=== PATIENT | male | born 1950 | race Caucasian/White ===

== ENCOUNTER 2018-10-12 10:30 | Emergency (ER) | payer MEDICARE, SELFPAY ==
[2018-10-12 10:33] VITALS: BP 137/79; PULSE 87; RESP 18; TEMP 36.3; O2SAT 99; BMI 25.3
--- NOTE | 2018-10-12 10:46 | CT_ITS ---
STUDY: CT ABDOMEN AND PELVIS WITH CONTRAST REASON FOR EXAM: Male, 67 years old. Lower abdominal pain x months and getting worse. RADIATION DOSAGE (If Supplied By Facility): CTDIvol = ( 24.87 ) mGy, DLP = ( 529.58 ) mGycm TECHNIQUE: Transaxial images were obtained from the dome of the diaphragm to the symphysis pubis with oral contrast. 100 ml of Isovue 300 contrast was administered. Sagittal and coronal images were reconstructed. Individualized dose optimization techniques were used for this CT. COMPARISON: None. FINDINGS: The visualized lung bases are unremarkable. The visualized portions of the heart are within normal limits. Normal liver. Normal gallbladder and extrahepatic biliary system. Normal spleen. Normal pancreas. Normal bilateral adrenal glands. Normal right kidney. Normal left kidney. Normal visualized stomach. Normal small intestine. Small diverticula along the sigmoid colon without diverticulitis. The appendix is visualized and appears normal. Normal abdominal aorta. Normal inferior vena cava. Normal retroperitoneum. Normal urinary bladder. Normal abdominal wall. Pronounced diffuse disc space height narrowing throughout the lumbar spine. Degenerative vacuum phenomenon at the L4-L5 and L5-S1 disc space levels. No acute osseous abnormality. CT/Abdomen/Pelvis WITH Contrast IMPRESSION: 1. Sigmoid diverticulosis without diverticulitis. 2. No suspicious mass or acute abnormality in the abdomen and pelvis. 3. Pronounced disc space height narrowing with degenerative vacuum phenomenon at L4-L5 and L5-S1 disc space levels. 4. Pronounced disc space height narrowing throughout the lumbar spine. Electronically Signed: Merrill Simpsno MD at 12:51 EST , Service support ,
--- NOTE | 2018-10-12 10:49 | ED.DCSUM_ITS ---
- ER Visit Summary Date of Service: 10/12/18 Chief Complaint: Abdominal pain History of Present Illness: The patient is a 67 M who has had abdominal pain for the past 2 months. Over the past week it is getting worse. He describes aching in the lower abdominal area. Nothing makes it better or worse. He has had no nausea, vomiting, diarrhea or constipation. Denies any urinary symptoms. He has had some dark stools. He followed up with his primary care physician for this last month and had a positive FOBT in the office. He is scheduled to see a GI doctor on October 21. His last colonoscopy was 5 years ago and was normal. He denies any history of abdominal surgeries. Physical Examination: Vital signs reviewed. HEENT exam unremarkable. Heart is regular rate and rhythm without murmurs. Lungs are clear to auscultation. Abdomen is soft and nontender. Extremities reveal no edema. Skin exam normal. Neurologic exam normal. Test Results: Laboratory studies, urinalysis normal. CAT scan with p.o. and IV contrast reveals diverticulosis. There are no masses noted. Emergency Department Course and Treatment: Patient looks very comfortable. I do not have any specific reason for the patient's pain. His blood counts are normal. I do not feel he requires a stay in the hospital. He does have follow- up in 9 days with a learning and development specialist. He will keep this appointment. I will give him Bentyl for pain. Treatment Plan: [] Disposition: Discharge Impression: Abdominal pain This note was generated with [employer] dictation software. It may contain incorrect words, spelling, and punctuation that were not noted in review of the chart prior to signing ED Disposition - Plan for ED Patient: Chief Complaint: Abd Pain Referrals: Ronnell Worthy MD [Primary Care Provider] -
[2018-10-12 11:03] LABS: Absolute Lymphocyte Count 1.54 X10^3/ul (0.83-4.51); Absolute Neutrophil Count 4.6 X10^3/uL (2.0-7.7); Basophil# 0.01 X10^3/uL; Basophil% 0.1 % (0-1); Eosinophil# 0.03 X10^3/uL; Eosinophils% 0.4 % (0-5); Hematocrit 48.6 % (40-54); Hemoglobin 16.2 g/dl (13.0-16.5); Lymphocyte # 1.54 X10^3/ul (4.0); Mean Corp Hgb Conc 33.3 g/gl (32-36); Mean Corpuscular Volume 92.9 fL (80-94); Monocyte# 0.49 X10^3/uL; Monocyte% 7.3 % (0-10); Neutrophil # 4.62 X10^3/uL (2.7-7.7); Neutrophil % 69.1 % (47-70); Platelet Count 212 K/mm3 (150-450); RBC Distribution Width CV 12.4 % (11.6-14.6); RBC Distribution Width SD 42.1 fl (35.1-43.9); Red Blood Count 5.23 M/mm3 (4.6-6.2); White Blood Count 6.7 K/mm3 (4.4-11.0)
[2018-10-12 11:04] LABS: POSITIVE COUNT NO; POSITIVE DIFFERENTIAL NO; POSITIVE MORPHOLOGY NO
[2018-10-12 11:17] LABS: AST(SGOT) 17 U/L (15-37); Alanine Aminotransfer ALT/SGPT 27 U/L (16-61); Albumin, Serum 3.8 g/dL (3.2-5.0); Alkaline Phosphatase 55 U/L (45-117); Anion Gap 7 (5-15); BUN 18 mg/dL (7-18); Calcium,Total 8.8 mg/dL (8.5-10.1); Chloride 105 mmol/L (98-107); Creatinine, Serum 1.29 mg/dL (0.70-1.30); EST Glomerular Filtration Rate 59 mL/min (>60); Est Glom Filt Rate - Afr Amer 71 mL/min (>60); Estimated Creatinine Clearance 54.05 ml/min; Globulin 3.8 g/dL (2.2-4.2); Glucose 97 mg/dL (74-106); Lipase 88 U/L (73-393); Protein, Total 7.6 g/dL (6.4-8.2); Sodium Level 141 mmol/L (136-145)
[2018-10-12 11:32] LABS: Bacteria 0 SEEN /hpf (None Seen); Mucous, Urine 0 SEEN /hpf (<or=2+); White Blood Cells 0 SEEN /hpf (0-5)
[2018-10-12 11:33] LABS: Color, Urine Yellow (Yellow); Glucose, Dipstick Normal (Normal); Ketone-Dipstick Negative (Negative); Leukocyte Esterase-Dipstick Negative /ul (Negative); Nitrite-Dipstick Negative (Negative); Occult Blood-Urine Negative /ul (Negative); Protein-Dipstick Negative (Negative); Urine Bilirubin Dipstick Negative (Negative); Urine Clarity Clear (Clear); Urine Urobilinogen Normal (Normal)
[2018-10-12 11:39] LABS: Red Blood Cells-Urine 0-5 SEEN /hpf (0-5); Squamous Epithelial Cells - UA 0-5 SEEN /hpf (0-5)
--- NOTE | 2018-10-12 13:18 | ED.DEP ---
ED Disposition - Plan for ED Patient: Disposition: Home or Assisted Living Chief Complaint: Abd Pain Instructions: ED Abdominal Pain Unkn Cause Prescriptions: Dicyclomine HCl [Bentyl] 20 mg PO TIDAC #20 cap Referrals: Ronnell Worthy MD [Primary Care Provider] -
[2018-10-12 13:31] VITALS: BP 128/74; PULSE 78; RESP 14; O2SAT 98
== END 2018-10-12 13:31 | disposition home or self-care (01) ==
PROVIDERS: Emergency Provider Emergency Medicine; Family Provider Family Medicine; PCP Family Medicine
DX: R10.9 Unspecified abdominal pain (principal); K57.90 Diverticulosis of intestine, part unspecified, without perforation or abscess without bleeding; Z87.442 Personal history of urinary calculi
CPT/HCPCS: 74177; 80053; 81001; 83690; 85025; 99283; Q9967; A4216

== ENCOUNTER → 2020-08-06 17:14 | Outpatient (CLI) | payer MEDICARE, SELFPAY | PROVIDERS: PCP Family Medicine; Referring Provider Nurse Practitioner Family; Visit Provider Nurse Practitioner Family | DX: Z20.828 Contact with and (suspected) exposure to other viral communicable diseases (principal) | CPT/HCPCS: 87635; C9803; U0003 ==